=== PATIENT | male | born 1990 | race American Indian/Alaskan Native ===

== ENCOUNTER 2016-08-13 08:24 | Emergency (ER) | payer SELFPAY ==
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
[2016-08-13] MEDS ORDERED: NACL 0.9% IR ONE (11:48)
[2016-08-13] MEDS ORDERED: BOOSTRIX IM ONE (11:48)
[2016-08-13] MEDS ORDERED: XYLOCAINE 1%/ EPI 1:100,000 INFILTRATI ONE (11:48)
[2016-08-13] MEDS ORDERED: BETADINE TP ONE (12:30)
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
[2016-08-13 15:13] VITALS: BP 116/72
== END 2016-08-13 15:14 | disposition home or self-care (01) ==
LOC: ED 08:24
DX: S09.90XA Unspecified injury of head, initial encounter (principal); S01.81XA Laceration without foreign body of other part of head, initial encounter; S00.83XA Contusion of other part of head, initial encounter; Y04.8XXA Assault by other bodily force, initial encounter; Y93.89 Activity, other specified; Y99.9 Unspecified external cause status; Y92.89 Other specified places as the place of occurrence of the external cause
CPT/HCPCS: 70486; 90471; 90715